=== PATIENT | female | born 1980 ===

== ENCOUNTER 2018-03-15 11:19 | Inpatient (IN) | payer MEDICAID, OTHER ==
[2018-03-15 11:47] VITALS: O2SAT 99
[2018-03-15 11:59] LABS: BASO # 0.1 K/uL (0.0-0.2); BASO % 0.8 % (0.0-2.0); EOS # 0.3 K/uL (0.0-0.7); EOS % 2.7 % (0.0-4.0); HEMOGLOBIN 14.4 g/dL (11.0-16.0); LYMPH # 1.8 K/uL (1.0-4.3); MEAN CELL VOLUME 94.2 fL (81.0-99.0); MEAN CORPUSCULAR HEMOGLOBIN 31.9 pg (27.0-31.0); MEAN CORPUSCULAR HGB CONC 33.8 g/dL (33.0-37.0); MEAN PLATELET VOLUME 6.7 fL (7.2-11.7); MONO # 0.8 K/uL (0.0-0.8); MONO % 7.3 % (0.0-10.0); NEUT # 8.4 K/uL (1.8-7.0); NEUT % 73.2 % (50.0-75.0); RBC 4.51 Mil/uL (3.80-5.20); RED CELL DISTRIBUTION WIDTH 12.3 % (11.5-14.5); WHITE BLOOD COUNT 11.4 K/uL (4.8-10.8)
[2018-03-15 12:07] LABS: HCG,QUALITATIVE URINE NEGATIVE (NEGATIVE)
[2018-03-15 12:10] LABS: SQUAMOUS EPITHIAL 4 /hpf (0-5); URINE BACTERIA OCC (<OCC); URINE BILIRUBIN NEGATIVE (NEGATIVE); URINE BLOOD 2+ (NEGATIVE); URINE CLARITY Hazy (Clear); URINE COLOR Yellow (YELLOW); URINE GLUCOSE (UA) NORMAL (Normal); URINE LEUKOCYTE ESTERASE NEG Leu/uL (Negative); URINE PROTEIN NEGATIVE (NEGATIVE); URINE UROBILINOGEN NORMAL mg/dL (0.2-1.0)
[2018-03-15 12:16] LABS: BLOOD UREA NITROGEN 11 mg/dL (7-17); GFR NON-AFRICAN AMERICAN > 60
[2018-03-15 12:17] LABS: ALB/GLOB RATIO 1.3 (1.0-2.1); ALBUMIN 4.8 g/dL (3.5-5.0); ALT/SGPT 19 U/L (9-52); AST/SGOT 20 U/L (14-36); CALCIUM 9.8 mg/dl (8.6-10.4)
[2018-03-15 12:24] LABS: BARBITURATES, UR NEGATIVE (NEGATIVE); BENZODIAZEPINES, UR NEGATIVE (NEGATIVE); OPIATES, UR NEGATIVE (NEGATIVE); PHENCYCLIDINE, UR NEGATIVE (NEGATIVE)
--- NOTE | 2018-03-15 17:25 | C.PDOC ---
History Of Present Illness 37 years old female presents to ED for complaints of feeling depressed for a while. Patient reports thoughts of hurting herself and cutting her wrist a couple of weeds ago. Denies HI, hallucination or any other physical complaints. Chief Complaint (Nursing): Psychiatric Evaluation History Per: Patient History/Exam Limitations: no limitations Onset/Duration Of Symptoms: Hrs Current Symptoms Are (Timing): Still Present Suicide/Self Injury Attempted (Context): Cut Wrists Associated Symptoms: Depression, Suicidal Thoughts Involuntary Hold By: None Recent travel outside of the [place]: No Past Medical History Reviewed: Historical Data, Nursing Documentation, Vital Signs Vital Signs: Last Vital Signs Temp 98.4 F 03/15/18 13:15 Pulse 82 03/15/18 15:44 Resp 17 03/15/18 14:29 BP 132/89 03/15/18 15:44 Pulse Ox 99 03/15/18 13:15 - Medical History PMH: Anxiety, Asthma, Depression Family History: States: No Known Family Hx - Social History Hx Alcohol Use: Yes (5-6 beers a day and wine) Hx Substance Use: Yes (Smoke weed in the past) - Immunization History Hx Tetanus Toxoid Vaccination: No Hx Influenza Vaccination: No Hx Pneumococcal Vaccination: No Review Of Systems Constitutional: Negative for: Fever, Chills Gastrointestinal: Negative for: Nausea, Vomiting, Abdominal Pain, Diarrhea Skin: Negative for: Rash Neurological: Negative for: Weakness, Numbness Psych: Positive for: Depression, Suicidal ideation Physical Exam - Physical Exam Appears: Non-toxic, No Acute Distress Skin: Warm, Dry, No Rash, Other (Superficial lacerations to left anterior wrist ) Head: Atraumatic, Normacephalic Eye(s): bilateral: Normal Inspection, PERRL, EOMI Oral Mucosa: Moist Neck: Normal ROM, Supple Chest: Symmetrical, No Tenderness Cardiovascular: Rhythm Regular, No Murmur Respiratory: Normal Breath Sounds, No Decreased Breath Sounds, No Rales, No Rhonchi, No Wheezing Gastrointestinal/Abdominal: Bowel Sounds (Active ), Soft, No Tenderness Extremity: Bilateral: Atraumatic, Normal Color And Temperature, Normal ROM Pulses: Left Radial: Normal, Right Radial: Normal Neurological/Psych: Oriented x3, Normal Speech Gait: Steady ED Course And Treatment - Laboratory Results Result Diagrams: 03/15/18 11:55 10/21/18 11:55 O2 Sat by Pulse Oximetry: 99 (RA) Pulse Ox Interpretation: Normal Medical Decision Making Medical Decision Making: Plan: * Pneumovax * Tylenol * Blood work * Urinalysis * Crisis notified Disposition - Disposition Disposition: HOSPITALIZED Disposition Time: 13:00 Condition: STABLE - Clinical Impression Clinical Impression: Depression - Scribe Statement The provider has reviewed the documentation as recorded by the Kelliibsydnie Marte All medical record entries made by the Kelliibsydnie were at my direction and personally dictated by me. I have reviewed the chart and agree that the record accurately reflects my personal performance of the history, physical exam, medical decision making, and the department course for this patient. I have also personally directed, reviewed, and agree with the discharge instructions and disposition.
--- NOTE | 2018-03-15 17:41 | PCM.BM ---
<Cindy Silver - Last Filed: 03/15/18 17:39> Treatment Plan Problems - Problems identified on initial assessmt Depression Date Initiated: 03/15/18 Time Initiated: 15:00 Assessment reference: NA Status: Active Suicidal Ideation Date Initiated: 03/15/18 Time Initiated: 15:00 Assessment reference: NA Status: Active Treatment assets and liabiliti Patient Assests: adapts well, cooperative, educated, ADL independent, physically healthy, negotiates basic needs, cognitively intact Patient Liabilities: live alone, financial problems, poor support system, substance abuse, medical problems (Asthma) - Milieu Protocol Maintain good personal hygiene: daily Encourage regular showers, daily Remind patient to perform daily oral care, daily Assist patient to perform ADL's (Self) Conduct patient checks and document Observation sheet: Q15 minutes (Safety) Maintain personal safety: every shift Educate patient to report safety concerns to staff, every shift Monitor environment for contraband/sharps Medication safety: Monitor for expected outcome, potential side effects: every shift, Assess barriers to learning: every shift, Assess readiness for medication education: every shift <Doc Santos - Last Filed: 03/16/18 11:47> - Diagnosis (1) Bipolar disorder Status: Acute Interventions: 03/16/18 11:47 * Assess/adjust medications daily and /or as needed * See patient on an individual basis 7x/week to assess level of manic behaviors and stability * Discuss risks, benefits, side effects and alternatives of medications * (2) Alcohol use disorder, severe, dependence Status: Acute Interventions: 03/16/18 11:48 * Assess 7x/week regarding severity of withdrawal * Educate regarding risks, benefits, side effects and alternatives of medications * Use Motivational Interviewing for abstinence * Use CBT for relapse prevention * Medication management for withdrawal symptoms * Encourage medication assisted treatment * <Marium Lin - Last Filed: 03/16/18 13:38> Family Contact Family involvement: Mika/SO not involved - Goals for Treatment Patient goals for treatment: "I want to attend an outpatient program." Discharge/Continuing Care - Education Needs Education Needs: Patient Medication, Patient Coping Skills - Discharge Discharge Criteria: Tolerates medication w/o severe side effects, Reduction of target symptoms Discharge to:: Home - Treatment Team Participation Discussed with Family/SO: No Was Patient/Family/SO present at Treatment Team Meeting: Yes
[2018-03-15] MEDS ORDERED: Bacitracin Ointment 30 GM TUBE TOP SCH (18:45)
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
[2018-03-15] MEDS ORDERED: Bacitracin Ointment 30 GM TUBE TOP PRN (19:43)
[2018-03-16] MEDS: Multiple Vitamins Tab PO SCH (09:46)
[2018-03-16] MEDS ORDERED: Caffeine Citrated **INJ** 20 MG/ML IV ONE (10:16)
--- NOTE | 2018-03-16 11:49 | PCM.PYCHPN ---
Psychiatric Progress Note - Psychiatric Progress Note Patient seen today, length of contact: 16 min Patient Chief Complaint: I was feeling depressed Problems Identified/Issues Discussed: Patient seen and evaluated, chart reviewed and discussed with the nurse. Patient reports depressed mood and at times feelings of hopelessness and helplessness. As per the staff patient remained isolated and withdrawn. She reports poor sleep and poor appetite and still complains of abdominal pain. Patient also reports withdrawal symptoms including anxiety, and headaches. She is tolerating the withdrawal medications and denies any side effects. She is taking the medications and denies any side effects. Symptoms are improving and she needs more time for stabilization Supportive therapy and psychoeducation were given. Medication Change: Yes Medical Record Reviewed: Yes Mental Status Examination - Cognitive Function Orientation: Person, Place, Situation, Time Memory: Intact Attention: WNL Concentration: Poor Association: WNL Fund of Knowledge: Poor - Mood Mood: Depressed - Affect Affect: Depressed - Speech Speech: Soft - Formal Thought Process Formal Thought Process: No Impairment - Suicidal Ideation Suicidal Ideation: No - Homicidal Ideation Homicidal Ideation: No Goal/Treatment Plan - Goal/Treatment Plan Need for Continued Stay: Severe depression anxiety, Severe functional impairment Progress Toward Problem(s) and Goals/Treatment Plan: Bipolar 1 disorder most recent episode depressed without psychotic features. PTSD chronic. Alcohol use disorder severe. Patient/staff education. Supportive therapy. CBT for relapse prevention. OR for abstinence. We'll start Librium when necessary for alcohol withdrawal symptoms. Other when necessary medication. Zoloft for depression lithium for mood swings - Smoking Cessation Smoking Cessation Initiated: No
[2018-03-17] MEDS: Multiple Vitamins Tab PO SCH (09:41)
[2018-03-17] MEDS ORDERED: Influenza Vaccine 60 MCG/0.5 ML SYR (3 yr & up) IM ONE (10:00)
[2018-03-17] MEDS ORDERED: Pneumococcal 23-Valent Vaccine IM ONE (10:00)
--- NOTE | 2018-03-17 13:57 | PCM.PYCHPN ---
Psychiatric Progress Note - Psychiatric Progress Note Patient seen today, length of contact: 16 min Patient Chief Complaint: I m feeling little better Problems Identified/Issues Discussed: Patient seen and evaluated, chart reviewed and discussed with the nurse. Patient reports some improvement in her depressed mood and feelings of hopelessness and helplessness. As per the staff patient remained isolated and withdrawn. She reports some improvement in her sleep and appetite as well, however, she still complains of abdominal pain. Patient also reports some improvement in her withdrawal symptoms including anxiety, and headaches. She is tolerating the withdrawal medications and denies any side effects. She is taking the medications and denies any side effects. Symptoms are improving and she needs more time for stabilization Supportive therapy and psychoeducation were given. Medication Change: Yes Medical Record Reviewed: Yes Mental Status Examination - Cognitive Function Orientation: Person, Place, Situation, Time Memory: Intact Attention: WNL Concentration: Poor Association: WNL Fund of Knowledge: Poor - Mood Mood: Depressed - Affect Affect: Depressed - Speech Speech: Soft - Formal Thought Process Formal Thought Process: No Impairment - Suicidal Ideation Suicidal Ideation: No - Homicidal Ideation Homicidal Ideation: No Goal/Treatment Plan - Goal/Treatment Plan Need for Continued Stay: Severe depression anxiety, Severe functional impairment Progress Toward Problem(s) and Goals/Treatment Plan: Bipolar 1 disorder most recent episode depressed without psychotic features. PTSD chronic. Alcohol use disorder severe. Patient/staff education. Supportive therapy. CBT for relapse prevention. [place] for abstinence. We'll start Librium when necessary for alcohol withdrawal symptoms. Other when necessary medication. Zoloft for depression lithium for mood swings - Smoking Cessation Smoking Cessation Initiated: No
[2018-03-18] MEDS: Multiple Vitamins Tab PO SCH (09:59)
--- NOTE | 2018-03-18 10:20 | PCM.PYCHPN ---
Psychiatric Progress Note - Psychiatric Progress Note Patient seen today, length of contact: 16 min Patient Chief Complaint: I m feeling better Problems Identified/Issues Discussed: Patient seen and evaluated, chart reviewed and discussed with the nurse. Patient reports some improvement in her depressed mood, sleep and appetite. Patient also reports some improvement in her withdrawal symptoms including anxiety, and headaches. S he is tolerating the withdrawal medications and denies any side effects. Symptoms are improving and she needs more time for stabilization Supportive therapy and psychoeducation were given. Medication Change: Yes Medical Record Reviewed: Yes Mental Status Examination - Cognitive Function Orientation: Person, Place, Situation, Time Memory: Intact Attention: WNL Concentration: Poor Association: WNL Fund of Knowledge: Poor - Mood Mood: Depressed - Affect Affect: Depressed - Speech Speech: Soft - Formal Thought Process Formal Thought Process: No Impairment - Suicidal Ideation Suicidal Ideation: No - Homicidal Ideation Homicidal Ideation: No Goal/Treatment Plan - Goal/Treatment Plan Need for Continued Stay: Severe depression anxiety, Severe functional impairment Progress Toward Problem(s) and Goals/Treatment Plan: Bipolar 1 disorder most recent episode depressed without psychotic features. PTSD chronic. Alcohol use disorder severe. Patient/staff education. Supportive therapy. CBT for relapse prevention. OR for abstinence. We'll start Librium when necessary for alcohol withdrawal symptoms. Other when necessary medication. Zoloft for depression lithium for mood swings
[2018-03-18] MEDS ORDERED: Lithium Carbonate 150 MG CAP PO ONE (10:30)
[2018-03-18] MEDS: Lithium Carbonate 150 MG CAP PO SCH (17:40)
[2018-03-19 06:29] VITALS: RESP 18; TEMP 98
[2018-03-19 09:14] VITALS: BP 115/79; PULSE 73
[2018-03-19] MEDS: Multiple Vitamins Tab PO SCH (10:17)
[2018-03-19] MEDS: Lithium Carbonate 150 MG CAP PO SCH (10:17)
--- NOTE | 2018-03-19 10:28 | PCM.PYCHDC ---
Mental Status Examination - Mental Status Examination Orientation: Person, Place, Situation, Time Memory: Intact Mood: Neutral Affect: Constricted Speech: Soft Attention: WNL Concentration: WNL Association: WNL Fund of Knowledge: WNL Formal Thought Process: No Impairment Description of patient's judgement and insight: good, fair Psychotic Thoughts and Behaviors: denies any AVH Suicidal Ideation: No Current Homicidal Ideation?: No Discharge Summary - Discharge Note Reason for Hospitalization: Patient is a 37 years old, single, unemployed for last 2 weeks, female with history of bipolar disorder depressed, no treatment was admitted to the hospital due to worsening of depression and attempting suicide. Patient reported that she has history of depression since 15 years of age and was admitted at [facility] at the time but did not have any follow-up appointments. Patient reported that she had some possible issues with her ex- and due to that she started feeling more depressed with decreased sleep, feeling tired in the morning, decreased appetite and lost about 4 pounds in 2 weeks. Frequent suicidal ideations but no homicidal ideations. Patient reported that today after walking up she was very depressed and suicidal, grabbed a kitchen knife and attempted to cut on her left wrist in order to kill herself. She came to ER and subsequently was admitted to [facility]. History of 8 previous suicidal attempts. Her first attempt was at 9 years of age and last attempt was today. Patient reported that in most of previous attempts she attempted to overdose but she didn't go to the hospital. History of 2 inpatient psychiatric admissions. Patient also reported crying at times and feeling hopeless and helpless. Patient also reported hearing voices at times in the past. Also admitting mood swings, racing thoughts, irritability and anger. Also having reckless behavior and spending money in the past and all these symptoms lasted for about 1-2 weeks. Still patient didn't get any treatment. Alcohol: Started drinking alcohol at 14 years of age, increased gradually. Currently she is drinking 6 beers and 3-5 cups of wine daily. Last drink yesterday. Denied any previous detox or rehabs. Patient also has history of cannabis use in the past. Last used at 19 years of age. Patient also smokes half pack of cigarettes daily and is requesting for nicotine patch. Patient was born in [place] and has high school graduation. Not working for last 2 weeks. 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 Patient never and has 3 grown up children. Patient lives alone. Her height is 5 feet 4 inches and weight is 130 pounds. Consultations:: List each consultation separately and include: 1. Reason for request. 2. Findings. 3. Follow-up Summary of Hospital Course include:: 1. Description of specific treatment plan utilized for patients during their course of treatmen. 2. Summarize the time- course for resolution of acute symptoms and/or regressed behaviors. 3. Describe issues identified and worked on during hospitalization. 4. Describe medication utilized. 5. Describe medical problems identified and treated. 6. Reassessment of suicide risk Summary of Hospital Course: During the course of her stay, patient (pt) started progressively improving and no longer remained irritable, depressed, and suicidal. Her mood and anxiety were improved and she started attending groups and meetings and started socializing. Patient denied any feelings of hopelessness, helplessness, and worthlessness, denied any problem with the sleep or appetite, denied suicidal ideation or homicidal ideation. Pt denied any auditory or visual hallucinations. She denied any withdrawal symptoms. Pt was treated with medications along with supportive therapy, milieu therapy and group therapy. Some changes were made in her current medications and patient was discharged on following medications. She tolerated these medications very well and denied any side effects. - Diagnosis (1) Bipolar disorder Status: Acute (2) Alcohol use disorder, severe, dependence Status: Acute - Final Diagnosis (DSM 5) Condition upon Discharge: STABLE DSM 5: Bipolar 1 disorder most recent episode depressed without psychotic features. PTSD chronic. Alcohol use disorder severe. Alcohol withdrawal Disposition: HOME/ ROUTINE Follow-up Treatment Plan: Followup: She was discharged to the [facility]. Education: Pt was educated and counseled about the risks and benefits of taking and not taking medications. Pt was educated and counseled about the risks of drinking and abusing drugs. Pt was educated and counseled to go to the ER or call 911 if pt develop suicidal ideation or homicidal ideation, worsening of symptoms or severe side effects of the meds. Prescriptions/Medication Reconciliation: [place] Carbonate [Ellicott Carbonate 150MG] 150 mg PO BID #60 cap Ell[place] Carbonate [Ellicott Carbonate 300MG] 300 mg PO BID #60 cap traZODone [Desyrel] 100 mg PO HS PRN #30 tab PRN Reason: Insomnia - Smoking Cessation Smoking Cessation Medication prescribed: No - Antipsychotic Medications Pt discharged on 2 or more routine antipsychotic medications: No
== END 2018-03-19 13:10 | disposition home or self-care (01) | DRG 753 ==
LOC: C.ER 11:19 → EEVIPCON 13:08 → C.9E 13:08 → C.5E 13:37
PROC: GZ3ZZZZ Medication Management (ICD-10-PCS; principal; 2018-03-15)
PROC: GZHZZZZ Group Psychotherapy (ICD-10-PCS; 2018-03-15)
PROC: GZ56ZZZ Individual Psychotherapy, Supportive (ICD-10-PCS; 2018-03-15)
PROC: HZ80ZZZ Medication Management for Substance Abuse Treatment, Nicotine Replacement (ICD-10-PCS; 2018-03-15)
PROC: HZ89ZZZ Medication Management for Substance Abuse Treatment, Other Replacement Medication (ICD-10-PCS; 2018-03-15)
DX: F31.9 Bipolar disorder, unspecified (principal); F10.239 Alcohol dependence with withdrawal, unspecified; F43.12 Post-traumatic stress disorder, chronic; J45.909 Unspecified asthma, uncomplicated; S61.512A Laceration without foreign body of left wrist, initial encounter; T14.91XA Suicide attempt, initial encounter; X78.1XXA Intentional self-harm by knife, initial encounter; F17.210 Nicotine dependence, cigarettes, uncomplicated; Z62.810 Personal history of physical and sexual abuse in childhood; Y92.9 Unspecified place or not applicable; Z91.5 Personal history of self-harm

== ENCOUNTER 2018-10-15 13:39 | Outpatient (CLI) | payer OTHER | END 2018-10-15 13:40 | disposition home or self-care (01) | LOC: C.MAMMO 13:40 ==